=== PATIENT | female | born 1990 ===

== ENCOUNTER → 2021-10-19 | Outpatient (CLI) | payer MEDICAID | LOC: COL.RAD 10:11 | DX: R76.12 Nonspecific reaction to cell mediated immunity measurement of gamma interferon antigen response without active tuberculosis (principal) ==

== ENCOUNTER 2022-01-13 09:21 | Outpatient (CLI) | payer MEDICAID ==
[~2022-01-13] VITALS: Ht 149.9 cm; Wt 54.1 kg
--- NOTE | 2022-01-13 09:45 | NUR ---
0945-20wk G5L3 patient of Dr[address] Solis ambulatory to triage 1 with complaints of back pain and difficulty voiding with blood while voiding. Dr. ANTONIO, doppler of [facility] 140's. Abodmen palpates soft. Interpertation video services utilized for assessment and to update patient on plan of care. Dr. Aleman notified, see MD notification.
[2022-01-13 09:50] VITALS: BP 105/59; PULSE 69; TEMP 98.1
[2022-01-13] MEDS ORDERED: DICLEGIS (10:07)
[2022-01-13] MEDS ORDERED: PRENATAL TABLET PO (10:07)
--- NOTE | 2022-01-13 11:15 | NUR ---
1115-Reviewed discharge instructions with patient through interpertation video services provided by hospital. Patient verbalized understanding. 1120-Ambulatory off unit.
== END 2022-01-13 11:20 | disposition home or self-care (01) ==
LOC: LDRO 09:21
DX: O46.92 Antepartum hemorrhage, unspecified, second trimester (principal); M54.89 Other dorsalgia; Z3A.20 20 weeks gestation of pregnancy
CPT/HCPCS: J0696

== ENCOUNTER 2022-03-01 13:15 | Outpatient (CLI) | payer MEDICAID ==
[~2022-03-01] VITALS: Ht 149.9 cm; Wt 57.7 kg
[~2022-03-01 13:15] MED LIST: DICLEGIS; PRENATAL TABLET PO
[2022-03-01 14:30] VITALS: BP 100/67; PULSE 72; TEMP 98.6
[2022-03-01 14:45] LABS: COLLECTION METHOD CLEAN CATCH
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
[2022-03-01 15:15] LABS: MUCOUS Present (NOT PRESENT); URINE BACTERIA Rare /hpf (NONE SEEN); URINE RBC 0-2 /hpf (0-2); URINE WBC 0-2 /hpf (0-2)
[2022-03-01 15:17] LABS: URINE COLOR Yellow (YELLOW)
[2022-03-01 15:18] LABS: URINE APPEARANCE Clear (CLEAR/HAZY); URINE BLOOD Negative (NEGATIVE); URINE GLUCOSE Negative (NEGATIVE); URINE KETONE Negative (NEGATIVE); URINE NITRATE Negative (NEGATIVE); URINE PROTEIN(semi-quant) Negative (NEGATIVE); URINE UROBILINOGEN 0.2 E.U/dL (0.2-1.0)
--- NOTE | 2022-03-01 16:30 | NUR ---
1550-[facility] COMPUTER TECHNICAL SUPPORT SPECIALIST#[id number] USED FOR WELSH INTERPRETATION. DISCHARGE INSTRUCTIONS GIVEN TO PT. PT TO FOLLOW UP AT CLINIC WITH NEXT APPOINTMENT. LABOR PRECAUTIONS AND DISCOMFORTS OF EXPLAINED TO PT. PT VERBALIZED UNDERSTANDING. PT DENIES ANY PAIN AT THIS TIME. PT HAS NO QUESTIONS AT THIS TIME. 1600-PT LEFT L&D UNIT IN STABLE CONDITION WITH NO COMPLAINTS. PT AMBULATED OFF UNIT WITH SPOUSE.
== END 2022-03-01 16:00 | disposition home or self-care (01) ==
LOC: LDRO 13:15
PROVIDERS: Obstetrics & Gynecology
DX: Z34.92 Encounter for supervision of normal pregnancy, unspecified, second trimester (principal); Z3A.27 27 weeks gestation of pregnancy

== ENCOUNTER 2022-08-26 11:49 | Emergency (ER) | payer MEDICAID ==
[~2022-08-26 11:49] MED LIST changes: +IBU800 M1 PO
[2022-08-26 12:03] VITALS: TEMP 98.2
[2022-08-26 12:55] LABS: BASO % 0.6 % (0.0-2.0); EOS # 0.1 K/mm3 (0.0-0.7); EOS % 1.4 % (0.0-4.0); GRAN # 3.4 K/mm3 (1.4-6.5); GRAN % 53.3 % (42.2-75.2); HEMATOCRIT 37.3 % (37.0-47.0); HEMOGLOBIN 12.7 g/dl (12.5-16.0); LYMPH # 2.4 K/mm3 (1.2-3.4); LYMPH % 37.2 % (20.0-51.0); MEAN CELL VOLUME 84 fl (80.0-100.0); MEAN CORPUSCULAR HEMOGLOBIN 29 pg (27-31); MEAN CORPUSCULAR HGB CONC 34 g/dl (33.0-37.0); MEAN PLATELET VOLUME 9.9 fl (7.4-10.4); MONO # 0.5 K/mm3 (0.1-0.6); MONO % 7.2 % (1.7-9.3); PLATELET COUNT 224 K/mm3 (130-400); RED BLOOD COUNT 4.43 M/mm3 (4.10-5.30); REDCELL DISTRIBUTION WIDTH-CV 12.6 % (11.5-14.5)
[2022-08-26 13:12] LABS: ALANINE AMINOTRANSFERASE 26 U/L (0-55); ALBUMIN 4.2 gm/dL (3.5-5.0); ALKALINE PHOSPHATASE 134 U/L (40-150); ANION GAP 11 mmol/L (7-16); AST,SGOT 30 U/L (5-34); BILIRUBIN,TOTAL 0.3 mg/dL (0.2-1.2); BLOOD UREA NITROGEN 12 mg/dL (7-19); CALCIUM 9.3 mg/dL (8.4-10.2); CARBON DIOXIDE 19 mmol/L (22-29); CHLORIDE 111 mmol/L (98-107); CREATININE, serum 0.73 mg/dL (0.57-1.11); GLUCOSE 83 mg/dL (70-99); POTASSIUM 4.2 mmol/L (3.5-4.5); SODIUM 141 mmol/L (136-145); TOTAL PROTEIN 7.7 gm/dL (6.2-8.1)
[2022-08-26 13:18] LABS: TROPONIN-I < 0.010 ng/mL (0.00-0.033)
[2022-08-26] MEDS ORDERED: PEPCID 20MG TAB20 MG PO (13:40)
[2022-08-26 13:55] VITALS: BP 126/73; PULSE 61
== END 2022-08-26 13:59 | disposition home or self-care (01) ==
LOC: COL.ER 11:49
PROVIDERS: Emergency Medicine
DX: R07.89 Other chest pain (principal)
CPT/HCPCS: J1885

== ENCOUNTER 2023-10-04 09:39 | Emergency (ER) | payer MEDICAID ==
[~2023-10-04 09:39] MED LIST changes: +MOTRIN 800800 MG/TAB PO; +PEPCID 20MG TAB20 MG PO
[2023-10-04 10:03] VITALS: BP 100/67; TEMP 98.4
[2023-10-04] MEDS ORDERED: Ketorolac 30 MG/ML VIAL IM ONE (10:30)
[2023-10-04] MEDS ORDERED: VOLTAREN GEL 1%1 TU TP (11:21)
[2023-10-04] MEDS ORDERED: NORCO 325 MG-51 TAB PO (11:21)
[2023-10-04 11:39] VITALS: PULSE 61
== END 2023-10-04 11:40 | disposition home or self-care (01) ==
LOC: COL.ER 09:39
DX: M25.562 Pain in left knee (principal)
CPT/HCPCS: J1885